=== PATIENT | male | born 1995 ===

== ENCOUNTER 2025-04-23 07:26 | Emergency (ER) | payer SELFPAY ==
--- NOTE | ~2025-04-23 | XR_ITS ---
EXAMINATION: XR FINGERS LEFT HISTORY: drilled through finger COMPARISON: There are no prior studies available for comparison. FINDINGS: Three views of the left index finger are submitted. Osseous mineralization is normal. There is no fracture or dislocation. The joint spaces are preserved. There is soft tissue injury at the level of the PIP joint. Multiple punctate metallic fragments are noted in the soft tissues. XR/XR finger LT min 2V IMPRESSION: Soft tissue injury at the level of the PIP joint multiple punctate metallic fragments noted in the soft tissues. No evidence of fracture. Electronically signed by: Marcus Aleman MD 04/23/2025 07:58 AM EDT
[2025-04-23 07:35] VITALS: BP 119/77; PULSE 72; RESP 16; TEMP 36.4; O2SAT 99; BMI 27.0
--- NOTE | 2025-04-23 07:57 | ED_ITS ---
HPI - Wound/Laceration General Chief Complaint: Wound/Laceration Stated Complaint: Drilled finger Time Seen by Provider: 04/23/25 07:43 Source: patient Mode of arrival: ambulatory Limitations: no limitations History of Present Illness HPI narrative: This is a 29 years old man right-handed presented to the emergency department with a chief complaint of left index finger injury accidentally he injured the left index finger with a drill bit. Onset (ago): hour(s) (1) Extremity Location: left: hand Place: home Context: accidental Associated symptoms: none and pain Related Data Previous Rx's ?Medication ?Instructions ?Recorded amoxicillin 875 mg-potassium 1 tab PO BID #14 tabs 07/07 clavulanate 125 mg tablet ibuprofen 800 mg tablet 800 mg PO Q8H PRN pain #20 t abs 04/23/25 Allergies Allergy/AdvReac Type Severity Reaction Status Date / Time No Known Allergies Allergy Verified 04/23/25 07:36 Review of Systems 2 Constitutional: Constitutional: Reports no additional constitutional complaints Cardiovascular: Cardiovascular: Reports no additional cardiovascular complaints Neurologic: Reports system reviewed and no additional complaints, except as documented PMFSH Past Medical History Reminder: Denies any major medical problems Physical Exam 2 Exam: Exam: No acute distress Vital Signs: Vital Signs: Last Vital Signs Temp 97.6 F 04/23/25 07:35 Pulse 72 04/23/25 07:35 Resp 16 04/23/25 07:35 BP 119/77 04/23/25 07:35 Pulse Ox 99 04/23/25 07:35 O2 Del Method Room Air 04/23/25 07:35 BMI result Body Mass Index 27.0 Const: General: cooperative Nutritional Appearance: average body habitus Orientation/consciousness: patient oriented x3 HEENT: Head: Yes normal to inspection General nose exam: Normal external nose present Face and sinus: Yes normal facial exam Neck: Neck: Yes normal visual inspection Resp: Effort & Inspection: normal respiratory effort Auscultation: clear to auscultation bilaterally Cardio: Jugular venous distension: no JVD Palpation: normal PMI Rate: r egular rate Rhythm: regular rhythm GI: Inspection: Yes normal to inspection Palpation (GI): Soft to palpation, not firm, nontender and no guarding Skin: General skin exam: no rashes or lesions noted and elasticity normal Neuro: General: patient oriented x3 Extrem: Other: Left hand examination shows an superficial laceration in the middle phalanx see picture he has full range of motion Course Reevaluation(s) Reevaluation #1: Wound was irrigated with a about 3 L of saline, foreign body removed, I discussed the case with ortho Belén Giles x-ray sent via [facility] test a report of the radiologist sent via [facility] she will follow-up the patient in the outpatient basis, the patient says that he is up-to-date on tetanus 6 years ago Time: 08:24 Medications Administered Discontinued Medications Generic Name Dose Route Start Last Admin Trade Name Freq PRN Reason Stop Dose Admin Amoxicillin/Clavulanate Potassium 875 mg 04/23/25 07:57 04/23/25 08:15 Amoxicillin/Potassium Clav 875 Mg Tablet PO 04/23/25 07:58 875 mg ONCE ONE Administration Ibuprofen 800 mg 04/23/25 07:57 04/23/25 08:15 Ibuprofen 800 Mg Tablet PO 04/23/25 07:58 800 mg ONCE ONE Administration Medical Decision Making Medical Decision Making [facility] Narrative: Patient is here after injured with a drill we will get x-ray administer antibiotic and cleaned the wound Differential Diagnosis Differential Diagnoses: The differential diagnosis associated with the presentation includes Fracture finger/tendon laceration Admission/Observation Consideration of admission/observation: Escalation of care including admission/observation considered Consult Healthcare Provider Belén Quiroz Ortho Independent Interpretation I performed an independent interpretation of an: Plain X-Ray Interpretation: I personally reviewed interpreted the x-ray as no fracture Discharge Plan Discharge Clinical Impression: Puncture wound Patient Disposition: Home, Self-Care Instructions: Acute Wounds (DC) Additional Instructions: Take antibiotic as directed the wound is at risk of infection, we sent the prescription to [facility] pharmacy downstairs. We want you to see the orthopedist for follow-up please call and make an appointment for follow-up Return to the emergency room if worse, if swelling, if redness, if drainage from the wound any concern Prescriptions: New amoxicillin-pot clavulanate 875-125 mg tablet 1 tab PO BID Qty: 14 0RF ibuprofen 800 mg tablet 800 mg PO Q8H PRN (Reason: pain) Qty: 20 0RF Referrals: Eugene Meng MD [Physician, Orthopedics] - 05/04/25 Print Language: Indian
[2025-04-23 08:35] VITALS: BP 119/77; PULSE 72; RESP 16; TEMP 36.4; O2SAT 99
--- OUTSIDE RECORDS SUMMARY | 2025-04-23 09:32 | XMS_ITS ---
Author Name [facility] Organization Unknown Encounters Encounter Type Encounter Reason Primary Diagnosis Location Date Ambulatory [facility] 02/11 Care Team Organization Name Specialty Phone Email Start Date End Da te [facility] 01/26/2025 [facility] 01/24/2025
== END 2025-04-23 08:36 | disposition home or self-care (01) ==
LOC: HO.ED 08:30
PROVIDERS: Emergency Provider Emergency Medicine
DX: S61.231A Puncture wound without foreign body of left index finger without damage to nail, initial encounter (principal); M79.642 Pain in left hand; X58.XXXA Exposure to other specified factors, initial encounter; Y93.9 Activity, unspecified; Y92.9 Unspecified place or not applicable; Y99.8 Other external cause status
CPT/HCPCS: 73140; 99283

== ENCOUNTER → 2025-04-23 07:45 | Outpatient (BNV) | payer SELFPAY | PROVIDERS: Emergency Provider Emergency Medicine; Visit Provider Radiology Diagnostic Radiology | DX: S61.241A Puncture wound with foreign body of left index finger without damage to nail, initial encounter (principal) | CPT/HCPCS: 73140 ==